=== PATIENT | female | born 1960 | race Caucasian/White ===

== ENCOUNTER → 2018-09-06 | Outpatient (CLI) | payer SELFPAY ==
[2018-09-06 17:16] LABS: HEMATOCRIT 44.2 % (37.0-47.0); MEAN CELL VOLUME 92 fl (80.0-100.0); MEAN CORPUSCULAR HEMOGLOBIN 31 pg (27.0-31.0); MEAN CORPUSCULAR HGB CONC 34 g/dl (33.0-37.0); MEAN PLATELET VOLUME 9.2 fl (7.4-10.4); PLATELET COUNT 201 K/mm3 (130-400); RED BLOOD COUNT 4.79 M/mm3 (4.10-5.30)
[2018-09-06 17:20] LABS: COLLECTION METHOD CLEAN CATCH
[2018-09-06 17:23] LABS: POTASSIUM 3.8 mmol/L (3.4-5.0)
[2018-09-06 17:24] LABS: ALBUMIN 4.2 gm/dL (3.5-5.0); BILIRUBIN,TOTAL 0.6 mg/dL (0.0-1.0); CALCIUM 9.6 mg/dL (8.4-10.2); CHOLESTEROL RISK RATIO 3.6; CREATININE, serum 0.77 mg/dL (0.52-1.25); TOTAL PROTEIN 7.3 gm/dL (6.4-8.2)
[2018-09-06 17:26] LABS: MUCOUS Present /lpf; PH 5 (5-8); SQUAMOUS EPITHELIAL 0-2 /hpf; URINE APPEARANCE Clear; URINE BACTERIA None Seen /hpf; URINE BILIRUBIN Negative (NEGATIVE); URINE BLOOD 2+ (NEGATIVE); URINE COLOR Yellow; URINE GLUCOSE Negative (NEGATIVE); URINE KETONE Negative (NEGATIVE); URINE LEUKOCYTE ESTERASE Negative (NEGATIVE); URINE NITRATE Negative (NEGATIVE); URINE PROTEIN(semi-quant) Negative (NEGATIVE); URINE UROBILINOGEN Negative (NEGATIVE); URINE WBC 0-2 /hpf
[2018-09-06 17:53] LABS: THYROID STIMULATING HORMONE 1.48 uIU/mL (0.465-4.680)
== END ==
LOC: COL.RAD 16:33
PROVIDERS: Nurse Practitioner Family
DX: I10 Essential (primary) hypertension (principal)

== ENCOUNTER 2023-09-13 08:47 | Outpatient (CLI) | payer MEDICARE ==
[~2023-09-13] VITALS: Ht 160 cm; Wt 93.4 kg
[2023-09-13] VITALS (20 sets, daily range): BP systolic 135–197; BP diastolic 83–105; PULSE 50–71; TEMP 97.6
[~2023-09-13 08:47] MED LIST: BREZTRI AEROS10.7 GM IH; VITAMIN D 400400 IU PO
--- NOTE | 2023-09-13 09:58 | NUR ---
Pt to ct per ambulation. Pt placed in prone position on ct table. Monitors applied and O2 on at 2l/nc
--- NOTE | 2023-09-13 10:00 | NUR ---
Dr Martin into talk with pt regarding procedure.
--- NOTE | 2023-09-13 10:28 | NUR ---
Specimen obtained by Dr Martin and placed in formalin. Specimen labeled.
--- NOTE | 2023-09-13 10:40 | NUR ---
Pt over to xray room for chest xray. Pt reports some discomfort on right side of lung. Bandaid to right side back clean dry and intact.
--- NOTE | 2023-09-13 11:12 | NUR ---
Pt resting comfortably in bed. HOB elevated for comfort. Pt arrived from lung bx on 2 L of O2 per NC, which continues. Pt c/o slight soreness of puncture site. Bandaid clean, dry and intact. She denies shortness of breath or other concerns. Call light in reach.
--- NOTE | 2023-09-13 13:41 | NUR ---
DC instructions reviewed with pt and significant other. Both express understanding. Dr Moctezuma was in to speak with pt. She is sitting up on edge of bed, free of complaints. Respirations remain even and unlabored. Gait steady to restroom. She eats crackers and drinks juice. IV DC"d, site wrapped with coban. Pt assisted out by wheelchair to family's car.
== END 2023-09-13 13:41 | disposition home or self-care (01) ==
LOC: COL.RAD 08:47
DX: R91.1 Solitary pulmonary nodule (principal)
CPT/HCPCS: J3010

== ENCOUNTER → 2023-10-10 | Outpatient (CLI) | payer MEDICARE ==
[~2023-10-10] MED LIST changes: +Albuterol 0.083% Neb Soln 2.5 MG/3 ML UD IH ONE
== END ==
LOC: COL.CARD 10:00
DX: C34.31 Malignant neoplasm of lower lobe, right bronchus or lung (principal)